=== PATIENT | male | born 1995 | race African-American/Black ===

== ENCOUNTER 2021-02-18 20:22 | Emergency (ER) | payer MEDICAID ==
[~2021-02-18] VITALS: Ht 172.7 cm; Wt 86.2 kg
[2021-02-18 22:10] VITALS: BP 118/77
--- NOTE | 2021-02-18 22:18 | NUR ---
URINE SENT TO LAB
--- NOTE | 2021-02-18 22:20 | NUR ---
PT BIBSELF C/O PENILE DISCHARGE X 2.5 WEEKS, COMPLETED ATB PO COURSE. THE PATIENT DENIES PAIN. PATIENT IS IN ER #[id number]. WILL CONTINUE TO MONITOR.
[2021-02-18] MEDS ORDERED: DOXY100C2 PO (22:21)
[2021-02-18] MEDS ORDERED: CEFTRIAXONE 500 MG VIAL ONE (22:27)
[2021-02-18] MEDS ORDERED: DOXYCYCLINE HYCLATE (100 MG) 100 MG TABLET ONE (22:27)
[2021-02-18] MEDS ORDERED: DOXYCYCLINE HYCLATE (100 MG) 100 MG TABLET PO ONE (22:30)
[2021-02-18] MEDS ORDERED: CEFTRIAXONE 500 MG VIAL IM ONE (22:30)
--- NOTE | 2021-02-18 22:35 | NUR ---
pt cleared for discharge per truck supervisor degrasse. pt received discharge instructions. pt verbalized understnading. pt ambulatory with steady gait
--- NOTE | 2021-02-18 22:35 | NUR ---
Patient discharged to home in stable condition. Written and verbal after care instructions given. Patient verbalizes understanding of instruction. The patient left ER in stable condition.
[2021-02-18 23:42] LABS: BILIRUBIN,URINE SMALL (NEGATIVE); COLOR,URINE YELLOW (YELLOW); LEUKOCYTE ESTERASE ,URINE NEGATIVE (NEGATIVE); NITRITE, URINE NEGATIVE (NEGATIVE); PROTEIN,URINE TRACE mg/dl (NEGATIVE); UGLUCOSE NEGATIVE (NEGATIVE)
[2021-02-18 23:53] LABS: BACTERIA,URINE None seen /HPF (None Seen); MUCUS,URINE Few /LPF (None Seen); RBC,URINE 0-2 /HPF (0-2); SQUAMOUS EPITHELIAL CELL,UR Few /HPF (None Seen); WBC,URINE 0-2 /HPF (0-3)
== END 2021-02-18 22:36 | disposition home or self-care (01) ==
LOC: ER 20:31
DX: R36.9 Urethral discharge, unspecified (principal); Z11.3 Encounter for screening for infections with a predominantly sexual mode of transmission; Z60.2 Problems related to living alone
CPT/HCPCS: 81001; 87491; 87591; 96372; 99283; J0696

== ENCOUNTER 2021-02-25 08:22 | Emergency (ER) | payer MEDICAID ==
[~2021-02-25] VITALS: Ht 172.7 cm; Wt 83.9 kg
[2021-02-25 08:22] VITALS: BP 131/82
[~2021-02-25 08:22] MED LIST: DOXY100C2 PO
[2021-02-25] MEDS ORDERED: CEPH500T PO (08:43)
== END 2021-02-25 08:53 | disposition home or self-care (01) ==
LOC: ER 08:25
DX: H00.011 Hordeolum externum right upper eyelid (principal); F10.10 Alcohol abuse, uncomplicated; Y90.9 Presence of alcohol in blood, level not specified; Z79.899 Other long term (current) drug therapy

== ENCOUNTER 2025-02-04 00:08 | Emergency (ER) | payer MEDICAID, OTHER ==
[~2025-02-04] VITALS: Ht 172.7 cm; Wt 93.9 kg
[~2025-02-04 00:08] MED LIST changes: +CEPH500T PO
[2025-02-04 02:12] LABS: BASOPHILS % (AUTO) 0.5 % (0.0-2.0); EOSINOPHILS # (AUTO) 0.3 K/uL (0.0-0.7); HEMATOCRIT 46 % (39-51); HEMOGLOBIN 15.4 g/dL (13.5-17.5); LYMPHOCYTES # (AUTO) 1.8 K/uL (0.8-4.8); LYMPHOCYTES % (AUTO) 37.3 % (20.0-44.0); MEAN CORPUSCULAR HEMOGLOBIN 29 PG (26.0-33.0); MEAN CORPUSCULAR HGB CONC 33 g/dl (31.0-36.0); MEAN CORPUSCULAR VOLUME 87 fL (80-96); MONOCYTES # (AUTO) 0.4 K/uL (0.1-1.30); MONOCYTES % (AUTO) 8.1 % (2.0-12.0); NEUTROPHILS # (AUTO) 2.4 K/uL (1.8-8.9); NEUTROPHILS % (AUTO) 48.1 % (43.0-81.0); PLATELET COUNT (AUTO) 263 K/uL (150-450); RED BLOOD CELL COUNT(AUTO) 5.31 MIL/uL (4.5-6.0); RED CELL DISTRIBUTION WIDTH 12.4 % (11.5-15.0); WHITE BLOOD COUNT (AUTO) 4.9 K/uL (4.3-11.0)
[2025-02-04 02:17] LABS: CALCIUM, SERUM 9.3 mg/dL (8.5-10.1); CREATININE 1.3 mg/dL (0.6-1.3); POTASSIUM 3.9 mmol/L (3.5-5.1)
[2025-02-04 03:31] VITALS: BP 128/88; TEMP 98; O2SAT 98
== END 2025-02-04 03:31 | disposition home or self-care (01) ==
LOC: ER 00:08
DX: R07.89 Other chest pain (principal); F19.10 Other psychoactive substance abuse, uncomplicated
CPT/HCPCS: 36415; 71045-TC; 80048-TC; 85025-TC; 85378-TC